=== PATIENT | female | born 1960 | race Caucasian/White ===

== ENCOUNTER 2016-10-02 11:30 | Emergency (ER) | payer BC ==
[2016-10-02] MEDS ORDERED: ASPIRIN 81 MG TAB.CHEW PO ONE (11:38)
[2016-10-02] MEDS ORDERED: DIAZEPAM 5 MG/ML SYRG IV ONE (11:43)
[2016-10-02] MEDS ORDERED: ONDANSETRON HCL/PF 2 MG/ML VIAL IV ONE (11:43)
[2016-10-02] MEDS ORDERED: ONDANSETRON HCL/PF 2 MG/ML VIAL ONE (11:53)
[2016-10-02] MEDS ORDERED: DIAZEPAM 5 MG/ML SYRG ONE (11:53)
[2016-10-02 11:54] LABS: Hematocrit 36.9 % (37.0-47.0); Hemoglobin 12.1 gm/dL (12.5-16.0); Mean Cell Volume 85.2 fl (78-100); Mean Corpuscular Hemoglobin 27.9 pg (27-31); Mean Corpuscular Hgb Conc 32.8 g/dl (32-36); Mean Platelet Volume 10.2 fl (6.0-9.5); Neutrophil # 4.3 K/mm3 (1.3-6.0); Neutrophil % 69.9 % (42-75.0); Platelet Count 252 K/mm3 (150-450); Red Blood Count 4.33 M/mm3 (4.2-5.4); Red Cell Distribution Width 12.7 % (11.5-14.0); White Blood Count 6.2 K/mm3 (4.0-10.5)
[2016-10-02] MEDS ORDERED: ASPIRIN 81 MG TAB.CHEW ONE (11:56)
[2016-10-02 12:05] LABS: Prothrombin Time (Patient) 10.4 Seconds (9.4-11.4)
[2016-10-02 12:09] LABS: Partial Thrombolplastin Time 25.4 Seconds (24-32)
[2016-10-02 12:12] LABS: ALT 27 U/L (19-67); AST 17 U/L (0-48); Albumin * 3.8 gm/dl (3.4-5.0); Alkaline Phosphatase * 53 U/L (50-170); BUN/Creatinine Ratio 17.8 (9.0-21.6); Bilirubin, Total 0.9 mg/dL (0.0-1.1); Blood Urea Nitrogen 16 mg/dL (3-23); Ca. Corrected For Albumin 8.7 mg/dL (8.4-10.2); Calcium * 8.9 mg/dL (7.9-10.9); Carbon Dioxide 27.9 mmol/L (24-32.6); Chloride 101 mmol/L (97-106); Glucose * 141 mg/dL (70-110); Potassium 3.9 mmol/L (3.4-4.6); Sodium 138 mmol/L (132-142); Total Protein 6.9 gm/dL (6.2-8.2); Troponin I Less than 0.017 ng/ml (0.00-0.10)
--- NOTE | 2016-10-02 14:00 | ERNOTE ---
Chest Pain/Cardiac HPI Chief Complaint: Chest Pain Time Seen by Provider: 10/02/16 11:35 Source: patient, family Exam Limitations: no limitations Immunizations: IMMUNIZATION HX Immunizations Up to Date Yes History of Influenza Vaccine No Hx Pneumococcal Vaccination No Allergies/Adverse Reactions: Allergies No Known Allergies Allergy (Verified 10/02/16 11:43) Home Medications: HOME MEDICATIONS Meclizine HCl [Antivert] 25 mg PO QID PRN #20 tablet 10/02/16 [Last Taken Unknown] Ondansetron [Zofran Odt] 4 mg PO Q6H PRN #10 tab 10/02/16 [Last Taken Unknown] Timing: constant Severity/Quality: moderate Location: central Chest Pain Radiation: no radiation Activities at Onset: none Modifying Factors - Improves: Present: nothing Modifying Factors - Worsens: Present: nothing Associated Symptoms: Present: dizziness Review of Systems - Review of Systems Constitutional: Present: See HPI EYE: Present: no symptoms reported ENT: Present: no symptoms reported Respiratory: Present: no symptoms reported Cardiology: Present: See HPI Gastrointestinal/Abdominal: Present: no symptoms reported Genitourinary: Present: no symptoms reported Musculoskeletal: Present: no symptoms reported Skin: Present: no symptoms reported Neurological: Present: dizziness/light-headedness Endocrine: Present: no symptoms reported Hematologic/Lymphatic: Present: no symptoms reported Psych: Present: no symptoms reported - Patient's Past Medical History Patient History - Medical: No pertinent hx Patient History - Cardiac/Respiratory: No pertinent hx Patient History - Cancer: No Hx of Cancer Patient History - Surgical Procedures: No surgical history Patient History - Other: None LMP (females 10-50): 1 month - Social History Living Situations: home Abuse History: No History of abuse Psych History: No pertinent hx Smoking Status: Never smoker Alcohol Use: occasionally Drug Use: none - Immunizations Immunizations Up to Date: Yes Hx Pneumococcal Vaccination: No History of Influenza Vaccine: No Physical Exam - Physical Exam General Appearance: Present: wd/wn, alert, mild distress - mostly anxious with dizziness Eye Exam: Normal inspection: bilateral, PERRL: bilateral Ears, Nose, Throat: Present: normal ENT inspection, H, normal pharynx Neck: Present: normal inspection, nontender Respiratory: Present: no respiratory distress, normal breath sounds, no accessory muscle use, chest nontender, lungs clear Cardiovascular/Chest: Present: regular rate, rhythm, no murmur, normal peripheral pulses Gastrointestinal/Abdominal: Present: normal bowel sounds, nontender, nondistended, soft, no organomegaly Rectal Exam: Present: deferred Back Exam: Present: normal inspection, normal range of motion Extremity Exam: Present: normal inspection, non-tender, no edema, normal range of motion Neurological Exam: Present: alert, oriented, normal mood/affect, no motor/ sensory deficits, 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 - Vital Signs Patient's Vital Signs:: I have reviewed the patient's vital signs. Vital Signs: Vital Signs 10/02/16 10/02/16 10/02/16 11:32 11:51 12:30 Temperature 36.6 C Pulse Rate 76 84 83 Respiratory 16 15 16 Rate Blood Pressure 145/101 125/86 122/84 O2 Sat by Pulse 98 98 Oximetry 10/02/16 10/02/16 13:05 13:21 Temperature Pulse Rate 75 72 Respiratory 12 12 Rate Blood Pressure 121/61 113/76 O2 Sat by Pulse 99 99 Oximetry - X-Ray X-Ray #1 X-Ray: chest Interpretation: Interp. by me, Reviewed by me - CT/Ultrasound CT/Ultrasound Narrative: CT of the head was reviewed. - Progress/Reassessment Chief Complaint: Chest Pain Plan - Plan Plan: Upon in-depth history patient denied having any significant chest pain and she was more concerned about her dizziness and had underlying anxiety about the dizziness. Patient was given 5 mg of Valium IV and all the dizziness and anxiety were resolved and the underlying chest tightness which I suspect was secondary to anxiety was also resolved. Patient will be given a prescription for Antivert and Zofran for any breakthrough nausea and she agrees to see her family physician this week. Patient is currently in a perimenopausal state and asked very perceptive question about the possibility that the menopause that she is going through and whether that could be contributory to her dizziness. I suggested that she follow up with her family physician regarding this however the hormone flux could be playing a role. Departure - Departure Clinical Impression: Vertigo, Menopausal and perimenopausal disorder Disposition: Home self-care Condition: Good Instructions: Vertigo, [id number] Prescriptions: Meclizine HCl [Antivert] 25 mg PO QID PRN #20 tablet PRN Reason: Vertigo Ondansetron [Zofran Odt] 4 mg PO Q6H PRN #10 tab PRN Reason: Nausea And Vomiting
[2016-10-02 14:01] VITALS: BP 114/77
== END 2016-10-02 14:11 | disposition home or self-care (01) ==
LOC: ER 11:30
DX: R07.89 Other chest pain (principal); R42 Dizziness and giddiness; N95.9 Unspecified menopausal and perimenopausal disorder; F41.9 Anxiety disorder, unspecified
CPT/HCPCS: 36415; 70450; 71010; 80053; 84484; 85025; 85610; 85730; 93005; 96374; 99283; J2405